=== PATIENT | female | born 1965 | race Caucasian/White ===

== ENCOUNTER 2017-09-11 19:25 | Emergency (ER) | payer MEDICAID ==
[~2017-09-11] VITALS: Ht 154.9 cm; Wt 104.3 kg
[2017-09-11] MEDS ORDERED: ONDANSETRON 4 MG/2 ML VIAL IM ONE (20:00)
[2017-09-11] MEDS ORDERED: HYDROMORPHONE 1 MG/1 ML DISP.SYRIN IM ONE (20:00)
[2017-09-11] MEDS ORDERED: HYDROMORPHONE 2 MG/1 ML DISP.SYRIN ONE (20:08)
[2017-09-11] MEDS ORDERED: ONDANSETRON 4 MG/2 ML VIAL ONE (20:09)
--- NOTE | 2017-09-11 20:12 | NUR ---
PT IN BED. PT PRESENTED TO ED WITH C/O ANKLE INJURY. PT REPORTS THIS WORK RELATED INJURY. PT IS AAOX4. PT IS CRYING AND REPORTS PAIN LEVEL OF 10/10. PT IS CALM AND COOPERATIVE. PT'S LUNG SOUNDS ARE CLEAR AND BREATH SOUNDS ARE EVEN AND UNLABORED. ABDOMINAL IS FLAT AND NON-TENDER. BOWEL SOUNDS PRESENT IN ALL FOUR QUADRANTS. CAP REFILL <3 SECS. IN ALL FOUR EXTREMITIES. PT'S VISITOR AT BEDSIDE.
[2017-09-11] MEDS ORDERED: OXYCODONE/APAP 5-325 MG TABLET PO ONE (21:00)
[2017-09-11] MEDS ORDERED: OXYCODONE/APAP 5-325 MG TABLET ONE (21:09)
--- NOTE | 2017-09-11 21:20 | NUR ---
Patient discharged to home in stable conditon. Patient reported significantly reduced foot pain prior to discharge. Written and verbal after care instructions given. Patient verbalizes understanding of instructions. Patient left in wheelchair with crutches. Patient left with all personal belongings.
[2017-09-11] MEDS ORDERED: ONDANSETRON ODT 4 MG TAB.RAPDIS ONE (21:24)
[2017-09-11 21:29] VITALS: BP 154/93
[2017-09-11] MEDS ORDERED: ONDANSETRON ODT 4 MG TAB.RAPDIS SL ONE (21:30)
== END 2017-09-11 21:20 | disposition home or self-care (01) ==
LOC: ER 19:27
DX: S92.355A Nondisplaced fracture of fifth metatarsal bone, left foot, initial encounter for closed fracture (principal); S93.402A Sprain of unspecified ligament of left ankle, initial encounter; I10 Essential (primary) hypertension; E11.9 Type 2 diabetes mellitus without complications; W18.49XA Other slipping, tripping and stumbling without falling, initial encounter; Y93.89 Activity, other specified; Y92.89 Other specified places as the place of occurrence of the external cause; Y99.8 Other external cause status
CPT/HCPCS: 29515; 73610; 73630; 96372 ×2; 99284; A4663; J1170; J2405; Q0162